=== PATIENT | female | born 1955 | race Caucasian/White ===

== ENCOUNTER → 2021-10-22 | Outpatient (CLI) | payer MEDICARE, OTHER | LOC: WCC 07:36 | DX: E11.621 Type 2 diabetes mellitus with foot ulcer (principal); L97.519 Non-pressure chronic ulcer of other part of right foot with unspecified severity; L97.419 Non-pressure chronic ulcer of right heel and midfoot with unspecified severity; I10 Essential (primary) hypertension; L84 Corns and callosities; F17.210 Nicotine dependence, cigarettes, uncomplicated; Z91.19 Patient's noncompliance with other medical treatment and regimen; Z88.2 Allergy status to sulfonamides; Z88.0 Allergy status to penicillin; Z88.8 Allergy status to other drugs, medicaments and biological substances; Z91.040 Latex allergy status; Z79.84 Long term (current) use of oral hypoglycemic drugs | CPT/HCPCS: G0463 ==